=== PATIENT | female | born 1950 | race Caucasian/White ===

== ENCOUNTER → 2016-08-12 | Outpatient (CLI) | payer MEDICARE, OTHER ==
[2016-03-06 13:00] VITALS: BP 162/59
[~2016-08-12] MED LIST: ACET500T68 PO; ALIS300T PO; DIPH25CA58 PO; ESCITALOPRAM OX10 MG PO; GABA600T2 PO; HYDR-971 PO; ISOS60TA2 PO; LEVO25TA55 PO; LEVO750T5 PO; LORA1TAB PO; MIRT45TA3 PO; OXYC-327 PO; ZOLP10TA4 PO
== END | disposition home or self-care (01) ==
LOC: CLNUT 10:07
PROVIDERS: ATTEND Internal Medicine Endocrinology, Diabetes & Metabolism
DX: Z98.84 Bariatric surgery status (principal)
CPT/HCPCS: 97802

== ENCOUNTER → 2016-09-03 | Outpatient (CLI) | payer MEDICARE, OTHER ==
[2016-03-06 13:00] VITALS: BP 162/59
[~2016-09-03] MED LIST changes: +ESCI10TA PO; -ESCITALOPRAM OX10 MG PO
[2016-09-03 20:06] LABS: CREATININE, UR 22.1 mg/dL (Not Estab.)
[2016-09-03 21:10] LABS: CALCIUM UR 4.8 mg/dL (Not Estab.)
== END | disposition home or self-care (01) ==
LOC: LAB 10:46
PROVIDERS: ATTEND Internal Medicine Endocrinology, Diabetes & Metabolism
DX: E34.9 Endocrine disorder, unspecified (principal); E83.59 Other disorders of calcium metabolism; Z98.84 Bariatric surgery status
CPT/HCPCS: 36415; 82340; 82570; 84300

== ENCOUNTER → 2017-01-03 | Outpatient (CLI) | payer MEDICARE, OTHER ==
[2016-03-06 13:00] VITALS: BP 162/59
[~2017-01-03] MED LIST changes: -ESCI10TA PO; +ESCITALOPRAM OX10 MG PO
[2017-01-06 19:09] LABS: ANA INTERP Negative (.)
== END | disposition home or self-care (01) ==
LOC: LAB 11:10
PROVIDERS: ATTEND Internal Medicine Infectious Disease
DX: T84.59XD Infection and inflammatory reaction due to other internal joint prosthesis, subsequent encounter (principal); Z79.899 Other long term (current) drug therapy
CPT/HCPCS: 36415; 85651; 86140

== ENCOUNTER → 2017-01-03 | Outpatient (CLI) | payer MEDICARE, OTHER ==
[2016-03-06 13:00] VITALS: BP 162/59
[2017-01-03 12:54] LABS: CALCIUM 9.1 mg/dL (8.5-10.1); GFR 55.1; POTASSIUM 4.4 mmol/L (3.5-5.1)
== END | disposition home or self-care (01) ==
LOC: LAB 11:04
PROVIDERS: ATTEND Internal Medicine Endocrinology, Diabetes & Metabolism
DX: M81.0 Age-related osteoporosis without current pathological fracture (principal)
CPT/HCPCS: 36415; 80048

== ENCOUNTER 2017-03-25 10:02 | Inpatient (IN) | payer MEDICARE, OTHER ==
[~2017-03-25] VITALS: Ht 182.9 cm; Wt 143.3 kg
--- NOTE | 2017-03-25 10:15 | PHYS DOC ---
Past History Past Medical History: Arthritis, Hypertension Past Surgical History: Cholecystectomy, Knee Replacement Alcohol Use: None Drug Use: None Adult General Chief Complaint Chief Complaint: WEAKNESS/GENERALIZED HPI HPI Patient is a 66-year-old female presenting to the emergency department for evaluation of increased fatigue lethargy confusion and inability to ambulate. Patient has some mobility issues given her weight and medical issues but can usually get around with a walker. is providing most of the history and says that she has been falling more often and appears to be misjudging her distances between objects. She will start a sentence but not finish. He reports that she did not eat hardly anything yesterday and woke up shaky this morning. He was trying to take her to her primary care provider's office however she was unable to ambulate an ambulance had to be called. Patient denies any complaints to me and she is in fact alert and oriented. Review of Systems Review of Systems Constitutional: Denies fever or chills [] Eyes: Denies change in visual acuity, redness, or eye pain [] HENT: Denies nasal congestion or sore throat [] Respiratory: Denies cough or shortness of breath [] Cardiovascular: No additional information not addressed in HPI [] GI: Denies abdominal pain, nausea, vomiting, bloody stools or diarrhea [] : Denies dysuria or hematuria [] Musculoskeletal: Denies back pain or joint pain [] Integument: Denies rash or skin lesions [] Neurologic: Denies headache, focal weakness or sensory changes [] All other systems were reviewed and found to be within normal limits, except as documented in this note. Allergies Allergies Allergies Coded Allergies Type Severity Reaction Last Updated Verified No Known Drug Allergies 01/19/14 No Physical Exam Physical Exam Constitutional: Well developed, well nourished, no acute distress, non-toxic appearance. [] HENT: Normocephalic, atraumatic, bilateral external ears normal, oropharynx dry , no oral exudates, nose normal. [] Eyes: PERRLA, EOMI, conjunctiva normal, no discharge. [] Neck: Normal range of motion, no tenderness, supple, no stridor. [] Cardiovascular:Heart rate regular rhythm, no murmur [] Lungs & Thorax: Bilateral breath sounds clear to auscultation [] Abdomen: Bowel sounds normal, soft, no tenderness, no masses, no pulsatile masses. [] Skin: Warm, dry, no erythema, no rash. [] Back: No tenderness, no CVA tenderness. [] Extremities: No tenderness, no cyanosis, no clubbing, ROM intact, no edema. 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 No obvious cranial nerve deficits or cerebellar deficits. EKG EKG Sinus rhythm at 70 beats per minutes with leftward axis no obvious ST elevation or depression and normal T waves. Radiology/Procedures Radiology/Procedures INDICATION: FEVER, WEAKNESS COMPARISON: 04/28/2015 FINDINGS: Single view of chest obtained. Cardiac silhouette is mildly prominent but could be from portable technique. The left lung base is obscured from the field of view. No definite focal airspace consolidation in visualized portions of the lungs. Degenerative changes of the left shoulder. Air under left hemidiaphragm. IMPRESSION: Left lung base is obscured by the overlying cardiac silhouette but no definite focal airspace consolidation elsewhere in the lungs. Air underneath left hemidiaphragm with the most likely cause being air within the stomach bubble unless there is concern for abdominal pathology then dedicated imaging of the abdomen could be obtained DICTATED AND SIGNED BY: SAIMA BARROW MD DATE: 03/25/[address] of the head without contrast, 03/25/2017: History: dizziness, fall Comparison is made to a study from 04/28/2015. The ventricles are within normal limits in size. There is no shift of the midline structures. There is no evidence of acute intracranial hemorrhage or mass effect. IMPRESSION: No acute intracranial abnormality is detected. CT of the cervical spine without contrast, 03/25/2017: Noncontrast scans were obtained with multiplanar reconstructions produced. There is moderate disc space narrowing and marginal spurring at multiple levels in the mid and lower cervical spine. There is fusion of the facet joints bilaterally at C2-3 and C3-4. There is a slight chronic appearing spondylolisthesis at C3-4. The combination of findings is causing moderate central spinal stenosis at C5-6 and to a lesser degree at several other levels. There is severe bilateral foraminal bony encroachment at C5-6. No acute fracture or dislocation is identified. There is mild calcific plaquing at the carotid bifurcations. IMPRESSION: 1. Moderate multilevel degenerative change as described above. 2. No acute bony abnormality is detected. PQRS Compliance Statement: One or more of the following individualized dose reduction techniques were utilized for this examination: 1. Automated exposure control 2. Adjustment of the mA and/or kV according to patient size 3. Use of iterative reconstruction technique DICTATED AND SIGNED BY: CLAUDIA OLMSTEAD MD DATE: 03/25/17 1129 Course & Med Decision Making Course & Med Decision Making Patient with generalized lethargy from unknown cause however overdose on opioids is considered to be most likely. We'll need to rule out other acute pathology such as sepsis cardiac ischemia CVA. Patient is in renal failure likely from not taking in enough fluids and her medications are likely building up in her system. I spoke to Dr. Tiwari and he agreed to accept patient for further evaluation and treatment. Dragon Disclaimer Dragon Disclaimer This electronic medical record was generated, in whole or in part, using a voice recognition dictation system. Departure Departure: Impression: Primary Impression: Metabolic encephalopathy Additional Impressions: Renal failure Anemia Elevated brain natriuretic peptide (BNP) level Disposition: ADMITTED INPATIENT Admitting Physician: Keli Cueva Condition: GUARDED Referrals: KELI CUEVA MD (PCP) Problem Qualifiers RENE CHRISTIANSEN DO Mar 25, 2017 10:15
[2017-03-25] MEDS ORDERED: IV NORMAL SALINE 1,000ML 1,000 ML IV ONE ×2 (10:45→13:00)
[2017-03-25 10:56] LABS: BASO % 1 % (0-3); EOS # 0.1 x10^3/uL (0.0-0.7); EOS % 2 % (0-3); HEMATOCRIT 27.3 % (36.0-47.0); LYMPH # 0.4 x10^3/uL (1.0-4.8); LYMPH % 9 % (24-48); MEAN CORPUSCULAR HEMOGLOBIN 31 pg (25-35); MEAN CORPUSCULAR HGB CONC 33 g/dL (31-37); MEAN CORPUSCULAR VOLUME 95 fL (79-100); MONO # 0.3 x10^3/uL (0.0-1.1); MONO % 8 % (0-9); NEUT # 3.2 x10^3uL (1.8-7.7); NEUT % 80 % (31-73); PLATELET COUNT 131 x10^3/uL (140-400); RED BLOOD COUNT 2.88 x10^6/uL (3.50-5.40); RED CELL DISTRIBUTION WIDTH 13.8 % (11.5-14.5)
[2017-03-25 11:15] LABS: INFLUENZA A PATIENT NEGATIVE (NEGATIVE); INFLUENZA B PATIENT NEGATIVE (NEGATIVE)
[2017-03-25 11:20] LABS: ACETAMIN 6.7 mcg/mL (10-30); SALIC 2.8 mg/dL (2.8-20.0)
[2017-03-25 11:22] LABS: ALBUMIN 2.9 g/dL (3.4-5.0); ALBUMIN/GLOBULIN RATIO 0.8 (1.0-1.7); CALCIUM 7.7 mg/dL (8.5-10.1); CREATININE 4.5 mg/dL (0.6-1.0); ETHANOL < 10 mg/dL (0-10); GFR 9.7; MAGNESIUM 1.9 mg/dL (1.8-2.4); POTASSIUM 4.8 mmol/L (3.5-5.1); TOTAL BILIRUBIN 0.2 mg/dL (0.2-1.0); TOTAL PROTEIN 6.5 g/dL (6.4-8.2)
--- NOTE | 2017-03-25 11:30 | RAD ---
INDICATION: FEVER, WEAKNESS COMPARISON: 04/28/2015 FINDINGS: Single view of chest obtained. Cardiac silhouette is mildly prominent but could be from portable technique. The left lung base is obscured from the field of view. No definite focal airspace consolidation in visualized portions of the lungs. Degenerative changes of the left shoulder. Air under left hemidiaphragm. IMPRESSION: Left lung base is obscured by the overlying cardiac silhouette but no definite focal airspace consolidation elsewhere in the lungs. Air underneath left hemidiaphragm with the most likely cause being air within the stomach bubble unless there is concern for abdominal pathology then dedicated imaging of the abdomen could be obtained
--- NOTE | 2017-03-25 11:38 | RAD ---
CT of the head without contrast, 03/25/2017: History: dizziness, fall Comparison is made to a study from 04/28/2015. The ventricles are within normal limits in size. There is no shift of the midline structures. There is no evidence of acute intracranial hemorrhage or mass effect. IMPRESSION: No acute intracranial abnormality is detected. CT of the cervical spine without contrast, 03/25/2017: Noncontrast scans were obtained with multiplanar reconstructions produced. There is moderate disc space narrowing and marginal spurring at multiple levels in the mid and lower cervical spine. There is fusion of the facet joints bilaterally at C2-3 and C3-4. There is a slight chronic appearing spondylolisthesis at C3-4. The combination of findings is causing moderate central spinal stenosis at C5-6 and to a lesser degree at several other levels. There is severe bilateral foraminal bony encroachment at C5-6. No acute fracture or dislocation is identified. There is mild calcific plaquing at the carotid bifurcations. IMPRESSION: 1. Moderate multilevel degenerative change as described above. 2. No acute bony abnormality is detected. PQRS Compliance Statement: One or more of the following individualized dose reduction techniques were utilized for this examination: 1. Automated exposure control 2. Adjustment of the mA and/or kV according to patient size 3. Use of iterative reconstruction technique
[2017-03-25 11:48] LABS: BARBITURATES NEG (NEG); BENZODIAZEPINES NEG (NEG); CANNABINOIDS NEG (NEG); COCAINE NEG (NEG); METHADONE NEG (NEG); OPIATES POS (NEG); PHENCYCLIDINE NEG (NEG)
[2017-03-25 11:49] LABS: AMPHETAMINE/METHAMPHETAMINE NEG (NEG)
[2017-03-25 11:58] LABS: AMORPHOUS SEDIMENT,UR PRESENT /HPF; BACTERIA,URINE 0 /HPF (0-FEW); BILIRUBIN,URINE NEG (NEG); CLARITY,URINE HAZY; COLOR,URINE YELLOW; GLUCOSE,URINE NEG (NEG); NITRITE,URINE NEG (NEG); RBC,URINE 0 /HPF (0-2); SQUAMOUS EPITHELIAL CELL,UR OCC /LPF; UROBILINOGEN,URINE 0.2 mg/dL (0.2 mg/dL); WBC,URINE 0 /HPF (0-4)
[2017-03-25] MEDS ORDERED: ACETAMINOPHEN 325 MG TABLET PO PRN (12:00)
[2017-03-25] MEDS ORDERED: ONDANSETRON PF 4 MG/2 ML VIAL. IV PRN (12:00)
[2017-03-25 13:53] VITALS: BP 144/95
--- NOTE | 2017-03-25 16:35 | EKG ---
[address] [address] Test Date: 2017-03-25 Test Time: 10:51:19 Pat Name: KARL MEADOWS Department: Room: 125 A Gender: F Beaming Inspector: OLIVIA : [id number] Requested By: RENE CHRISTIANSEN Order Number: [id number] Reading MD: Cornelio Couch MD Measurements Intervals [place] Rate: 70 P: 38 MS: 164 QRS: -10 QRSD: 96 T: 18 QT: 384 QTc: 417 Interpretive Statements SINUS RHYTHM Electronically Signed On 03-28-2017 12:40:16 [employer] by Cornelio Couch MD
[2017-03-25 19:40] VITALS: BP 112/64
[2017-03-25] MEDS ORDERED: ALIS1TAB4 PO (20:51)
[2017-03-25] MEDS ORDERED: CLON0.5T3 PO (20:51)
[2017-03-25] MEDS ORDERED: POTA20TA4 PO (20:51)
[2017-03-25] MEDS ORDERED: DIPH25CA58 PO (20:51)
[2017-03-25] MEDS ORDERED: OXYC20TA34 PO (20:51)
[2017-03-25] MEDS ORDERED: NEBI10TA3 PO (20:51)
[2017-03-25] MEDS ORDERED: ERGO500027 PO (20:51)
[2017-03-25] MEDS ORDERED: DULO60CA6 PO (20:51)
[2017-03-25] MEDS ORDERED: ISOS60TA2 PO (20:51)
[2017-03-25] MEDS ORDERED: LEVO150T PO (20:51)
[2017-03-25] MEDS ORDERED: FERR-26 PO (20:51)
[2017-03-25] MEDS ORDERED: ASPI81TA50 PO (20:51)
[2017-03-25] MEDS ORDERED: FURO-68 PO (20:51)
[2017-03-25] MEDS ORDERED: MIRA50TA PO (20:51)
[2017-03-25] MEDS ORDERED: SOLI5TAB2 PO (20:51)
[2017-03-25] MEDS ORDERED: MELO15TA23 PO (20:51)
[2017-03-25] MEDS ORDERED: ESTR42.53 TOP (20:57)
[2017-03-25] MEDS ORDERED: ESTRADIOL 0.01% VAGINAL CREAM 42.5GM TUBE. VG PRN (21:15)
[2017-03-25] MEDS ORDERED: clonazePAM 0.5 MG TABLET PO PRN (21:15)
[2017-03-25] MEDS ORDERED: diphenhydrAMINE HCL 25 MG CAPSULE PO PRN (21:15)
[2017-03-25] MEDS ORDERED: MIRTAZAPINE 15 MG TABLET PO SCH (21:30)
[2017-03-25] MEDS ORDERED: ZOLPIDEM 5 MG TABLET. PO PRN (21:30)
[2017-03-25] MEDS: HEPARIN PF for SUB-Q USE 5,000 UNIT/0.5 ML VIAL. SQ SCH (21:51)
[2017-03-25] MEDS: GABAPENTIN 300 MG CAPSULE. PO SCH (21:51)
[2017-03-25] MEDS: oxyCODONE ER 20 MG TAB.ER.12H PO SCH (21:52)
[2017-03-25] MEDS ORDERED: IOHEXOL 240 MG/ML 50ML VIAL. PO ONE (22:45)
--- NOTE | 2017-03-25 22:52 | RAD ---
CT scan of the abdomen and pelvis with oral contrast only 03/25/2017 CLINICAL HISTORY: Abdominal pain and distention. Possible free air seen on chest radiograph earlier today. TECHNIQUE: After the oral administration of contrast only, contiguous, 3 mm axial sections were obtained through the abdomen and pelvis. One or more of the following individualized dose reduction techniques were utilized for this study: 1. Automated exposure control. 2. Adjustment of the mA and/or kV according to patient size. 3. Use of iterative reconstruction technique. FINDINGS: Images through the lung bases demonstrate minimal dependent subsegmental atelectasis bilaterally. Images through the lung bases demonstrate mild cardiomegaly. Dependent subsegmental atelectasis is seen involving both lower lobes. The liver, spleen, pancreas, adrenal glands and kidneys are within normal limits. Atherosclerotic calcification of the abdominal aorta is seen. The abdominal aorta tapers normally. Surgical clips are seen within the gallbladder fossa consistent with a cholecystectomy. No free fluid or free air is seen within the abdomen. A moderate to large amount of stool is seen throughout the colon. Images through the pelvis demonstrate the urinary bladder to be contracted. A Ball catheter is noted in place. The patient is post right ELIDA. No free fluid is seen. Degenerative changes are seen involving lower thoracic and throughout the lumbar spine and the left hip. IMPRESSION: Moderate to large amount of stool is seen throughout the colon. No acute abnormality is seen. Electronically signed by: Zac Barnard MD (03/25/2017 10:49 PM) [facility]
[2017-03-25] MEDS ORDERED: CONTRAST GIVEN MC PRN (23:00)
[2017-03-25 23:46] VITALS: BP 114/82
[2017-03-26] VITALS (13 sets, daily range): BP systolic 85–146; BP diastolic 37–71
[2017-03-26] MEDS: HEPARIN PF for SUB-Q USE 5,000 UNIT/0.5 ML VIAL. SQ SCH ×3 (05:47→21:29)
[2017-03-26] MEDS: oxyCODONE ER 20 MG TAB.ER.12H PO SCH ×2 (05:47→07:58)
[2017-03-26] MEDS: GABAPENTIN 300 MG CAPSULE. PO SCH (07:58)
[2017-03-26] MEDS: LEVOTHYROXINE 150 MCG TABLET PO SCH (07:59)
[2017-03-26] MEDS: FERROUS SULFATE 325 MG TABLET. PO SCH ×2 (08:00→17:17)
[2017-03-26] MEDS: ASPIRIN ENTERIC COATED 81 MG TABLET.DR. PO SCH (08:00)
[2017-03-26] MEDS ORDERED: MELOXICAM 15 MG TABLET. PO SCH (09:00)
[2017-03-26] MEDS ORDERED: OXYBUTYNIN CHLORIDE 5 MG TABLET PO SCH (09:00)
[2017-03-26] MEDS ORDERED: ISOSORBIDE MONONITRATE ER 30 MG TAB.ER.24H PO SCH (09:00)
[2017-03-26] MEDS ORDERED: NON FORMULARY ITEM (Mirabegron (Myrbetriq) 50 MG) PO SCH (09:00)
[2017-03-26] MEDS ORDERED: POTASSIUM CHLORIDE 20 MEQ TABLET.ER. PO SCH (09:00)
[2017-03-26] MEDS ORDERED: hydroCHLOROthiazide 25 MG TABLET PO SCH (09:00)
[2017-03-26] MEDS ORDERED: ALISKIREN HEMIFUMARATE 150 MG TABLET. PO SCH (09:00)
[2017-03-26] MEDS ORDERED: FUROSEMIDE 40 MG TABLET PO SCH (09:00)
[2017-03-26] MEDS ORDERED: levoFLOXacin 750 MG TABLET PO SCH (09:00)
[2017-03-26] MEDS ORDERED: MIRABEGRON 25 MG TAB.ER.24H PO SCH (09:00)
[2017-03-26] MEDS ORDERED: DULoxetine HCL 60 MG CAPSULE.DR PO SCH (09:00)
[2017-03-26] MEDS ORDERED: METOPROLOL TART IMMED RELEASE 50 MG TABLET PO SCH (09:00)
[2017-03-26 09:06] LABS: CALCIUM 7.8 mg/dL (8.5-10.1); CREATININE 3.4 mg/dL (0.6-1.0); GFR 13.4; POTASSIUM 4.7 mmol/L (3.5-5.1)
[2017-03-26 09:08] LABS: BASO % 1 % (0-3); EOS # 0.1 x10^3/uL (0.0-0.7); EOS % 2 % (0-3); HEMATOCRIT 28.3 % (36.0-47.0); HEMOGLOBIN 9.3 g/dL (12.0-15.5); LYMPH # 0.4 x10^3/uL (1.0-4.8); LYMPH % 14 % (24-48); MEAN CORPUSCULAR HEMOGLOBIN 31 pg (25-35); MEAN CORPUSCULAR HGB CONC 33 g/dL (31-37); MEAN CORPUSCULAR VOLUME 95 fL (79-100); MONO # 0.3 x10^3/uL (0.0-1.1); MONO % 9 % (0-9); NEUT # 2.2 x10^3uL (1.8-7.7); NEUT % 74 % (31-73); PLATELET COUNT 127 x10^3/uL (140-400); RED BLOOD COUNT 2.98 x10^6/uL (3.50-5.40); RED CELL DISTRIBUTION WIDTH 13.3 % (11.5-14.5); WHITE BLOOD COUNT 3.1 x10^3/uL (4.0-11.0)
[2017-03-26] MEDS ORDERED: NALOXONE 0.4 MG/ML VIAL. IV ONE (11:00)
--- NOTE | 2017-03-26 11:39 | HP ---
ADMIT DATE: 03/25/2017 HISTORY OF PRESENT ILLNESS: The patient is a 66-year-old female with multiple medical problems, who came in with fatigue, lethargy, confusion and inability to ambulate. The patient's notes for last day or two prior to admission, the patient has been having problems with not eating, drinking, and becoming more and more confused. As a result of this, the patient was brought in through the Emergency Room. Her creatinine was found to be in the 4.5 range, which is very high for her and her BUN was 85. As a result of all this, the patient was admitted to the hospital for further evaluation and treatment. PAST MEDICAL HISTORY: Includes severe osteoarthritis, morbid obesity, thyroid cancer, hypertension, diabetes, coronary artery disease, possible infection of her right and left knees as a result of previous joint infections, sees Dr. Myrna ZENG for this. ALLERGIES: No known allergies. PAST SURGICAL HISTORY: Right knee replacement 03/2013, right knee replacement with infection 04/12/2013, right knee joint removal infection 05/12/2013, right knee muscle flap repair fell down kneecap went through sutures from previous surgery, thyroid removed, gastric bypass, right knee incision and drainage, right knee replacement, hysterectomy. MEDICATIONS: Include that of Remeron 45 mg at bedtime, Bystolic 10 mg daily, vitamin D 50,000 once a day, Synthroid 150 mcg, Levaquin 750 mg daily, calcium citrate, Flector patch, VESIcare 5 mg daily, OxyContin 20 mg every 8 hours, Ambien 10, gabapentin 600 three times a day. FAMILY HISTORY: Basically unremarkable. SOCIAL HISTORY: The patient denies smoking, alcohol or drug use. REVIEW OF SYSTEMS: Markedly confused, disoriented, is not really able to answer questions as we have asked her and she is just not answering questions. This is pretty much a comatose patient. PHYSICAL EXAMINATION: VITAL SIGNS: Blood pressure 110/40, respiratory rate 16, pulse 70, temperature of approximately 98.4. The patient is on 2 liters nasal cannula. HEENT: The patient's head was atraumatic, normocephalic. Eyes: PERRLA, although somewhat slow to react. Mouth and throat: Dry mucous membranes. NECK: Supple, without JVD, carotid bruit or thyromegaly. LUNGS: Diminished. Poor movement of air. CARDIOVASCULAR: Regular sinus rhythm. ABDOMEN: Soft, protuberant, nontender. No rebound or guarding. Positive bowel sounds, no hepatosplenomegaly noted. EXTREMITIES: No clubbing, cyanosis. Trace edema noted. She has marked lymphedema to her legs. Marked degenerative changes noted to her joints. She also has marked hypertrophy consistent with arthritis to the knees and previous knee surgeries as indicated. IMPRESSION: Acute encephalopathy, dehydration, chronic on top of acute kidney disease stage 2, change in mental status, constipation, dehydration, morbid obesity. PLAN: The patient will be placed in the ICU because of her low blood pressure, low oxygen saturation. Monitor carefully IV fluids. Take her off most of her meds since she cannot swallow. Continue to monitor blood pressures and make further adjustment on her as indicated. KELI CUEVA MD DR: BARRINGTON/hank JOB#: [id number] / [id number]
[2017-03-26] MEDS: IV NORMAL SALINE 1,000ML 1,000 ML IV SCH ×3 (11:47→22:00)
--- NOTE | 2017-03-26 12:03 | RAD ---
CT head without contrast 03/26/2017 Indication: Loss of consciousness Comparison: CT head 03/25/2017 Technique: Multiple axial noncontrast CT images of the head were obtained from the skull base through the vertex. Findings: The ventricles, sulci and basal cisterns are within normal limits. Low-attenuation in the periventricular white matter is compatible with chronic small vessel ischemic changes. There is subtle low attenuation involving the left temporal lobe which may be artifactual from adjacent streak artifact. There is no acute intracranial hemorrhage. There is no mass, mass effect or midline shift. Posterior fossa is within normal limits. Sellar and suprasellar cistern appear normal. Orbits are normal in appearance. Paranasal sinuses are well aerated. Mastoid air cells are well aerated. Scalp and calvaria are normal. Impression: There is no acute intracranial hemorrhage. Subtle low attenuation is noted in the left temporal lobe, which may be artifactual from adjacent bone and streak artifact. If there is persistent neurologic deficit, further evaluation with MRI may be of benefit. PQRS Compliance Statement: One or more of the following individualized dose reduction techniques were utilized for this examination: 1. Automated exposure control 2. Adjustment of the mA and/or kV according to patient size 3. Use of iterative reconstruction technique
--- NOTE | 2017-03-26 13:04 | RAD ---
Portable chest, 03/26/2017: History: Shortness of breath Comparison is made to a study from 03/25/2017. The heart is at the upper limits of normal in size. There is mild tortuosity of the thoracic aorta. The pulmonary vascularity is normal. No pulmonary infiltrates are seen. There is no evidence of pleural fluid. IMPRESSION: No acute cardiopulmonary abnormality is detected.
--- NOTE | 2017-03-26 18:22 | CONS ---
DATE OF CONSULTATION: 03/26/2017 REASON FOR CONSULTATION: Hypotension. HISTORY OF PRESENT ILLNESS: The patient is a 66-year-old woman who has past medical history as noted below, presented to the hospital in the setting of mental status changes. She also had acute renal failure and the etiology is currently unclear with not a clear differential diagnosis. The patient denies any preceding chest pain, orthopnea, PND, or significant lower extremity edema. 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 She denies any recent urinary tract issues or changes to her medications or [id number] drugs. Initial evaluation revealed the creatinine of 4.5 and she was given 2 liters of fluid for hypotension and this has improved her creatinine. Initial cardiac enzymes were negative and were minimally elevated, but nonetheless at the upper limits of normal. PAST MEDICAL HISTORY: 1. Morbid obesity. 2. Significant osteoarthritis. 3. Diabetes. 4. Hypertension. 5. Presumed coronary artery disease, based on chart, but the patient denies any prior history. ALLERGIES: No known drug allergies. PAST SURGICAL HISTORY: Surgical history is notable for significant knee replacements, removal of thyroid, gastric bypass, and hysterectomy. CURRENT CARDIOVASCULAR MEDICATIONS: 1. Aspirin 81 mg daily. SOCIAL HISTORY: The patient denies any alcohol, tobacco, or illicit drug use. REVIEW OF SYSTEMS: Negative for 10 out of 14 systems reviewed, unless otherwise mentioned above in the HPI. PHYSICAL EXAMINATION: VITAL SIGNS: Afebrile, 69, 18, 121/56, 95% on room air. She previously was noted to have low blood pressure of approximately 80/40 this morning around 10:00 a.m. HEAD AND NECK: Exam is unremarkable except for thick neck. CARDIAC: Regular rate and rhythm without any murmurs, rubs, or gallops. LUNGS: Fairly clear to auscultation bilaterally anteriorly. ABDOMEN: Obese, nontender with distal bowel sounds. EXTREMITIES: Bilateral chronic venous stasis changes in lower extremities, 2+ radial pulses, and diminished pedal pulses. NEUROLOGIC: No focal deficits are noted. DIAGNOSTIC STUDIES: CT of the head is unremarkable without any evidence of midline shift or intracranial hemorrhage. Chest x-ray demonstrates no significant abnormalities. EKG demonstrates sinus rhythm without any acute ST or T-wave changes. Echocardiogram is currently pending. LABORATORY DATA: Laboratory study is notable for creatinine of 3.4, down from 4.5. Her TSH and cardiac enzymes are within normal limits. BNP is minimally elevated at 1661. IMPRESSION: 1. Hypotension. 2. Acute renal failure of unclear etiology: The patient does not exhibit any clear signs or symptoms of sepsis. She has no recent urinary tract infection or obstructive pathology, but she may benefit from further evaluation and rest of her acute renal failure. From a purely cardiovascular perspective, her hypotension is most likely related to her multiple analgesic drugs and although she reports that she has been taking her medications accurately, it is unclear if she is truly conforming to her medication dosages. 3. No obvious cardiac ischemia by EKG or biomarkers. RECOMMENDATIONS: 1. Supportive care with food or resuscitation as necessary. 2. We will obtain an echocardiogram to rule out any significant structural heart disease. Overall, low suspicion for any cardiac related hypotension. Thank you for this consultation. YVETTE ARMENTA MD DR: FRANKY/hank JOB#: [id number] / [id number]
[2017-03-27] VITALS (18 sets, daily range): BP systolic 105–154; BP diastolic 47–77
[2017-03-27] MEDS: IV NORMAL SALINE 1,000ML 1,000 ML IV SCH ×2 (03:55→16:45)
[2017-03-27] MEDS: HEPARIN PF for SUB-Q USE 5,000 UNIT/0.5 ML VIAL. SQ SCH ×3 (07:09→21:55)
[2017-03-27] MEDS: LEVOTHYROXINE 150 MCG TABLET PO SCH (07:33)
[2017-03-27] MEDS: FERROUS SULFATE 325 MG TABLET. PO SCH ×2 (08:18→17:23)
[2017-03-27] MEDS: ASPIRIN ENTERIC COATED 81 MG TABLET.DR. PO SCH (08:18)
--- NOTE | 2017-03-27 08:43 | CARD ---
MR#: [id number] Date of Study: 03/26/2017 Ordering Physician: KELI CUEVA, Referring Physician: KELI CUEVA, Tech: Arelis Thacker RDCS APPROVED REPORT EXAM: Two-dimensional and M-mode echocardiogram with Doppler and color Doppler. Other Information Quality : AverageHR: 73bpm Rhythm : NSR INDICATION Hypotension 2D DIMENSIONS Left Atrium(2D)4.4 (1.6-4.0cm)IVSd1.1 (0.7-1.1cm) Aortic Root(2D)2.7 (2.0-3.7cm)LVDd5.1 (3.9-5.9cm) LVOT Diameter2.5 (1.8-2.4cm)PWd1.1 (0.7-1.1cm) LVDs3.1 (2.5-4.0cm)FS (%) 38.0 % SV82.6 mlLVEF(%)67.9 (>50%) Aortic Valve AoV Peak Edward.176.0cm/sAoV VTI43.5cm AO Peak GR.12.4mmHgLVOT Peak Edward.134.9cm/s LVOT VTI 30.86cmAO Mean GR.7mmHg ELBA (VMAX)3.63ai7SFH (VTI)3.47cm2 Mitral Valve MV E Udxxuito20.3cm/sMV DECEL [id number] MV A Yxqrpofv98.6cm/sE/A Ratio0.9 Pulmonary Valve PV Peak Xzcczjqe496.9cm/sPV Peak Grad.7mmHg Tricuspid Valve TR P. Wxzzqfqj003lk/sTR Peak Gr.51mmHg LEFT VENTRICLE The left ventricle is normal size. There is normal left ventricular wall thickness. The left ventricu lar systolic function is normal. The ejection fraction is estimated at 60-65%. There is normal LV seg mental wall motion. No left ventricle thrombus noted on this study. There is no ventricular septal de fect visualized. There is no left ventricular aneurysm. RIGHT VENTRICLE The right ventricle is normal size. The right ventricular systolic function is normal. ATRIA The left atrium is mildly dilated. The right atrium size is normal. AORTIC VALVE The aortic valve is normal in structure and function. Doppler and Color Flow revealed trace to no aor tic regurgitation. There is no significant aortic valvular stenosis. There is no aortic valvular vege tation. MITRAL VALVE The mitral valve is normal in structure and function. There is no evidence of mitral valve prolapse. There is no mitral valve stenosis. Doppler and Color-flow revealed mild mitral regurgitation. TRICUSPID VALVE The tricuspid valve is normal in structure and function. Doppler and Color Flow revealed moderate tri cuspid regurgitation. There is no tricuspid valve prolapse or vegetation. There is no tricuspid valve stenosis. PULMONIC VALVE The pulmonary valve is normal in structure and function. Doppler and Color Flow revealed no pulmonic valvular regurgitation. There is no pulmonic valvular stenosis. GREAT VESSELS The aortic root is normal in size. The ascending aorta is normal in size. The IVC is normal in size a nd collapses >50% with inspiration. PERICARDIAL EFFUSION There is no pleural effusion. There is no evidence of significant pericardial effusion. Critical Notification Critical Value: No <Conclusion> The left ventricular systolic function is normal. The ejection fraction is estimated at 60-65%. There is normal LV segmental wall motion. Mild mitral regurgitation. Moderate tricuspid regurgitation. There is no evidence of significant pericardial effusion. Signed by : Edilberto Butler, Electronically Approved : 03/27/2017 08:42:53
[2017-03-27] MEDS: levoFLOXacin 250 MG TABLET PO SCH (10:06)
[2017-03-27 10:23] LABS: BASO % 1 % (0-3); EOS # 0.1 x10^3/uL (0.0-0.7); EOS % 3 % (0-3); HEMATOCRIT 29.5 % (36.0-47.0); HEMOGLOBIN 9.9 g/dL (12.0-15.5); LYMPH # 0.5 x10^3/uL (1.0-4.8); LYMPH % 14 % (24-48); MEAN CORPUSCULAR HEMOGLOBIN 32 pg (25-35); MEAN CORPUSCULAR HGB CONC 34 g/dL (31-37); MEAN CORPUSCULAR VOLUME 94 fL (79-100); MONO # 0.3 x10^3/uL (0.0-1.1); MONO % 8 % (0-9); NEUT # 2.5 x10^3uL (1.8-7.7); NEUT % 74 % (31-73); PLATELET COUNT 138 x10^3/uL (140-400); RED BLOOD COUNT 3.14 x10^6/uL (3.50-5.40); RED CELL DISTRIBUTION WIDTH 13.6 % (11.5-14.5); WHITE BLOOD COUNT 3.4 x10^3/uL (4.0-11.0)
[2017-03-27 10:46] LABS: CALCIUM 7.9 mg/dL (8.5-10.1); CREATININE 2.6 mg/dL (0.6-1.0); GFR 18.3; POTASSIUM 4.3 mmol/L (3.5-5.1)
[2017-03-27] MEDS: MORPHINE ER 30 MG TABLET.ER PO SCH ×2 (12:30→21:53)
--- NOTE | 2017-03-27 12:47 | PDOC ---
PROGRESS NOTES Diagnosis Problem Problems Medical Problems: (1) Anemia Status: Acute (2) Elevated brain natriuretic peptide (BNP) level Status: Acute (3) Metabolic encephalopathy Status: Acute (4) Renal failure Status: Acute Assessment Problems Medical Problems: (1) Anemia Status: Acute (2) Elevated brain natriuretic peptide (BNP) level Status: Acute (3) Metabolic encephalopathy Status: Acute (4) Renal failure Status: Acute 1. Hypotension - likely secondary to dehydration, resolved. Normal LV function and wall motion by echo. 2. ARF - improving. per PCP continue supportive care. Call if any questions or concerns. Problems: Subjective no chest pain, breathing easy, no palpitations. Objective Vital Signs Date Time Temp Pulse Resp B/P (MAP) Pulse Ox O2 Delivery O2 Flow Rate FiO2 03/27/17 12:32 98.4 03/27/17 12:30 18 98 Room Air 03/27/17 11:00 72 154/77 (102) 03/26/17 16:19 2.0 Intake and Output 03/27/17 06:59 Intake Total 2725 ml Output Total 1500 ml Balance 1225 ml Intake Oral 700 ml IV Total 2025 ml Output Urine Total 1500 ml # Bowel Movements 1 Abdomen: Normal bowel sounds, Soft Heart: Regular rate, Normal S1, Normal S2 Extremities: Other (+ peripheral edema) General: Alert, Cooperative, No acute distress Lungs: Other (minimallly decreased bases without crackles, wheezing or rhonchi. ) Neuro: Normal speech Psych/Mental Status: Mental status NL, Mood NL Review of Relevant I have reviewed the following items chanel (where applicable) has been applied. Labs Laboratory Tests Test 03/26/17 08:50 03/26/17 13:04 03/26/17 14:30 03/27/17 10:09 White Blood Count 3.1 x10^3/uL (4.0-11.0) 3.4 x10^3/uL (4.0-11.0) Red Blood Count 2.98 x10^6/uL (3.50-5.40) 3.14 x10^6/uL (3.50-5.40) Hemoglobin 9.3 g/dL (12.0-15.5) 9.9 g/dL (12.0-15.5) Hematocrit 28.3 % (36.0-47.0) 29.5 % (36.0-47.0) Mean Corpuscular Volume 95 fL (79-100) 94 fL (79-100) Mean Corpuscular Hemoglobin 31 pg (25-35) 32 pg (25-35) Mean Corpuscular Hemoglobin Concent 33 g/dL (31-37) 34 g/dL (31-37) Red Cell Distribution Width 13.3 % (11.5-14.5) 13.6 % (11.5-14.5) Platelet Count 127 x10^3/uL (140-400) 138 x10^3/uL (140-400) Neutrophils (%) (Auto) 74 % (31-73) 74 % (31-73) Lymphocytes (%) (Auto) 14 % (24-48) 14 % (24-48) Monocytes (%) (Auto) 9 % (0-9) 8 % (0-9) Eosinophils (%) (Auto) 2 % (0-3) 3 % (0-3) Basophils (%) (Auto) 1 % (0-3) 1 % (0-3) Neutrophils # (Auto) 2.2 x10^3uL (1.8-7.7) 2.5 x10^3uL (1.8-7.7) Lymphocytes # (Auto) 0.4 x10^3/uL (1.0-4.8) 0.5 x10^3/uL (1.0-4.8) Monocytes # (Auto) 0.3 x10^3/uL (0.0-1.1) 0.3 x10^3/uL (0.0-1.1) Eosinophils # (Auto) 0.1 x10^3/uL (0.0-0.7) 0.1 x10^3/uL (0.0-0.7) Basophils # (Auto) 0.0 x10^3/uL (0.0-0.2) 0.0 x10^3/uL (0.0-0.2) Sodium Level 138 mmol/L (136-145) 141 mmol/L (136-145) Potassium Level 4.7 mmol/L (3.5-5.1) 4.3 mmol/L (3.5-5.1) Chloride Level 106 mmol/L (98-107) 108 mmol/L (98-107) Carbon Dioxide Level 20 mmol/L (21-32) 21 mmol/L (21-32) Anion Gap 12 (6-14) 12 (6-14) Blood Urea Nitrogen 71 mg/dL (7-20) 61 mg/dL (7-20) Creatinine 3.4 mg/dL (0.6-1.0) 2.6 mg/dL (0.6-1.0) Estimated GFR (Cockcroft-Gault) 13.4 18.3 Glucose Level 110 mg/dL (70-99) 115 mg/dL (70-99) Calcium Level 7.8 mg/dL (8.5-10.1) 7.9 mg/dL (8.5-10.1) D-Dimer (Jewell) 4.01 mg/L (0.00-0.50) Creatine Kinase 77 U/L (26-192) Troponin I Quantitative 0.055 ng/mL (0-0.055) Nasal Screen MRSA (PCR) Negative (Negative) Microbiology 03/25/17 Blood Culture - Preliminary, Resulted NO GROWTH AFTER 2 DAYS Medications Current Medications Sodium Chloride 1,000 ml @ 1,000 mls/hr 1X ONCE IV Last administered on at 10:48; Start 03/25/17 at 10:45; Stop 03/25/17 at 11:44; Status DC Ondansetron HCl (Zofran) 4 mg PRN Q4HRS PRN IV NAUSEA/VOMITING; Start 03/25/17 at 12:00; Stop 03/26/17 at 10:43; Status DC Acetaminophen (Tylenol) 650 mg PRN Q4HRS PRN PO FEVER; Start 03/25/17 at 12:00; Stop 03/26/17 at 10:43; Status DC Sodium Chloride 1,000 ml @ 150 mls/hr 1X ONCE IV Last administered on at 19:55; Start 03/25/17 at 13:00; Stop 03/25/17 at 19:39; Status DC Aspirin (Aspirin Enteric Coated) 81 mg DAILY PO Last administered on 03/27/17at 08:18; Start 03/26/17 at 09:00 Clonazepam (KlonoPIN) 0.5 mg PRN TID PRN PO ANXIETY; Start 03/25/17 at 21:15; Stop 03/26/17 at 11:05; Status DC Diphenhydramine HCl (Benadryl) 25 mg PRN Q6HRS PRN PO ALLERGIES; Start 03/25/17 at 21:15; Stop 03/26/17 at 11:05; Status DC Duloxetine HCl (Cymbalta) 60 mg DAILY PO Last administered on 03/26/17at 07:58; Start 03/26/17 at 09:00; Stop 03/26/17 at 11:05; Status DC Estradiol (Estrace) 1 daja PRN DAILY PRN VG itching; Start 03/25/17 at 21:15; Stop 03/26/17 at 10:43; Status DC Ferrous Sulfate (Feosol) 325 mg BIDWMEALS PO Last administered on 03/27/17at 08: 18; Start 03/26/17 at 08:00 Furosemide (Lasix) 40 mg DAILY PO Last administered on 03/26/17at 08:00; Start at 09:00; Stop 03/26/17 at 10:43; Status DC Levofloxacin (Levaquin) 750 mg DAILY PO ; Start 03/26/17 at 09:00; Stop 03/26/17 at 09:00; Status DC Levothyroxine Sodium (Synthroid) 150 mcg DAILYAC PO Last administered on at 07:33; Start 03/26/17 at 07:30 Meloxicam (Mobic) 15 mg DAILY PO Last administered on 03/26/17at 07:59; Start 03/26/17 at 09:00; Stop 03/26/17 at 10:43; Status DC Oxycodone HCl (OxyCONTIN) 20 mg Q8HRS PO Last administered on 03/25/17at 21:52; Start 03/25/17 at 22:00; Stop 03/26/17 at 10:43; Status DC Potassium Chloride (Klor-Con) 20 meq DAILY PO Last administered on 03/26/17at 07: 57; Start 03/26/17 at 09:00; Stop 03/26/17 at 10:43; Status DC Zolpidem Tartrate (Ambien) 5 mg PRN QHS PRN PO INSOMNIA, MR X1 WITHIN 2 HRS; Start 03/25/17 at 21:30; Stop 03/26/17 at 10:43; Status DC Aliskiren (Tekturna) 300 mg DAILY PO Last administered on 03/26/17at 07:58; Start 03/26/17 at 09:00; Stop 03/26/17 at 10:43; Status DC Vitamin D (Vitamin D3) 50,000 unit WEEKLY PO ; Start 03/30/17 at 09:00; Stop 03/30 at 09:00; Status DC Gabapentin (Neurontin) 600 mg TID PO Last administered on 03/26/17at 07:58; Start 03/25/17 at 21:30; Stop 03/26/17 at 11:05; Status DC Isosorbide Mononitrate (Imdur) 60 mg DAILY PO Last administered on 03/26/17at 07: 59; Start 03/26/17 at 09:00; Stop 03/26/17 at 10:43; Status DC Non-Formulary Medication 50 mg DAILY PO Last administered on 03/26/17at 08:00; Start 03/26/17 at 09:00; Stop 03/26/17 at 10:43; Status UNV Non-Formulary Medication 50 mg DAILY PO ; Start 03/26/17 at 09:00; Status UNV Mirtazapine (Remeron) 45 mg QHS PO Last administered on 03/25/17at 21:51; Start 03/25/17 at 21:30; Stop 03/26/17 at 10:43; Status DC Metoprolol Tartrate (Lopressor) 50 mg BID PO Last administered on 03/26/17at 07: 59; Start 03/26/17 at 09:00; Stop 03/26/17 at 10:43; Status DC Oxybutynin Chloride (Ditropan) 5 mg BID PO Last administered on 03/26/17at 08:00 ; Start 03/26/17 at 09:00; Stop 03/26/17 at 10:43; Status DC Heparin Sodium (Porcine) 5,000 unit Q8HRS SQ Last administered on 03/27/17at 07: 09; Start 03/25/17 at 22:00 Hydrochlorothiazide (Hydrodiuril) 25 mg DAILY PO Last administered on 03/26/17at 07:57; Start 03/26/17 at 09:00; Stop 03/26/17 at 10:43; Status DC Iohexol (Omnipaque 240 Mg/ml) 50 ml 1X ONCE PO Last administered on 03/25/17at 23:07; Start 03/25/17 at 22:45; Stop 03/25/17 at 22:47; Status DC Info (Do NOT chart on this entry -- for MONITORING) 1 each PRN DAILY PRN MC SEE COMMENTS; Start 03/25/17 at 23:00; Stop 03/27/17 at 22:59 Sodium Chloride 1,000 ml @ 200 mls/hr Q5H IV Last administered on 03/26/17at 22: 00; Start 03/26/17 at 10:45 Naloxone HCl (Narcan) 0.4 mg 1X ONCE IV Last administered on 03/26/17at 11:20; Start 03/26/17 at 11:00; Stop 03/26/17 at 11:02; Status DC Levofloxacin (Levaquin) 250 mg DAILY06 PO Last administered on 03/27/17at 10:06; Start 03/27/17 at 10:00 Morphine Sulfate (Ms Contin) 30 mg BID PO Last administered on 03/27/17at 12:30; Start 03/27/17 at 10:15 Active Scripts Active Reported Estrace (Estradiol) 42.5 Gm Cream.appl 1 Daja TOP PRN DAILY PRN LAST DOSE GIVEN: DATE: TIME: NEXT DOSE DUE: DATE: TIME: Bystolic (Nebivolol Hcl) 10 Mg Tablet 10 Mg PO DAILY Lasix (Furosemide) 40 Mg Tablet 40 Mg PO DAILY Tekturna Hct 300-25 Mg Tablet (Aliskiren/Hydrochlorothiazide) 1 Each Tablet 1 Each PO DAILY Synthroid (Levothyroxine Sodium) 150 Mcg Tablet 150 Mcg PO DAILYAC Cymbalta (Duloxetine Hcl) 60 Mg Capsule. 60 Mg PO DAILY Myrbetriq (Mirabegron) 50 Mg Tab.er.24h 50 Mg PO DAILY Myrbetriq (Mirabegron) 50 Mg Tab.er.24h 50 Mg PO DAILY Clonazepam 0.5 Mg Tablet 0.5 Mg PO TID PRN Aspir-Low (Aspirin) 81 Mg Tablet. 81 Mg PO DAILY Vitamin D2 (Ergocalciferol (Vitamin D2)) 50,000 Unit Capsule 50,000 Unit PO WEEKLY Meloxicam 15 Mg Tablet 15 Mg PO DAILY Vesicare (Solifenacin Succinate) 5 Mg Tablet 5 Mg PO DAILY Benadryl (Diphenhydramine Hcl) 25 Mg Capsule 25 Mg PO Q6HRS PRN Isosorbide Mononitrate Er (Isosorbide Mononitrate) 60 Mg Tab.er.24h 60 Mg PO DAILY Ferrous Sulfate 325 Mg Tablet 325 Mg PO BIDWMEALS Oxycontin (Oxycodone HCl) 20 Mg Tab.er.12h 20 Mg PO Q8HRS Klor-Con M20 (Potassium Chloride) 20 Meq Tab.er.prt 20 Meq PO DAILY Levofloxacin 750 Mg Tablet 750 Mg PO DAILY Gabapentin 600 Mg Tablet 600 Mg PO TID last dose this morning next dose due this afternoon Zolpidem Tartrate 10 Mg Tablet 10 Mg PO PRN QHS PRN last dose last night next dose due tonight Mirtazapine 45 Mg Tablet 1 Tab PO QHS last dose last night next dose due tonight Vitals/I & O Vital Sign - Last 24 Hours 03/26/17 03/26/17 03/26/17 03/26/17 13:14 13:25 14:00 15:00 Temp 98.2 Pulse 71 70 68 Resp 18 20 18 B/P (MAP) 129/50 (76) 115/50 (71) 117/69 (85) Pulse Ox 95 97 94 O2 Delivery Nasal Cannula Nasal Cannula O2 Flow Rate 2.0 2.0 03/26/17 03/26/17 03/26/17 03/26/17 16:19 16:24 17:52 19:18 Pulse 69 72 70 Resp 18 18 18 B/P (MAP) 121/56 (77) 141/63 (89) 121/56 (77) Pulse Ox 95 94 96 O2 Delivery Nasal Cannula Nasal Cannula Room Air Room Air O2 Flow Rate 2.0 03/26/17 03/26/17 03/26/17 03/26/17 20:00 20:17 20:18 21:40 Temp 98.0 Pulse 74 68 Resp 21 B/P (MAP) 137/58 (84) 120/48 (72) Pulse Ox 93 96 O2 Delivery Room Air Room Air Room Air 03/26/17 03/27/17 03/27/17 03/27/17 23:11 00:01 00:06 01:09 Pulse 68 67 85 Resp 20 18 18 B/P (MAP) 133/58 (83) 137/56 (83) 118/51 (73) Pulse Ox 96 97 97 O2 Delivery Room Air Room Air Room Air Room Air 03/27/17 03/27/17 03/27/17 03/27/17 02:08 03:14 04:00 04:07 Pulse 73 69 72 B/P (MAP) 113/48 (69) 105/47 (66) 123/60 (81) Pulse Ox 95 93 94 O2 Delivery Room Air Room Air Room Air Room Air 03/27/17 03/27/17 03/27/17 03/27/17 05:15 05:56 06:06 07:00 Temp 98.2 Pulse 67 70 68 B/P (MAP) 125/51 (75) 139/57 (84) 135/63 (87) Pulse Ox 96 94 97 O2 Delivery Room Air Room Air 03/27/17 03/27/17 03/27/17 03/27/17 08:00 09:00 09:15 10:00 Pulse 68 72 69 B/P (MAP) 153/57 (89) 144/63 (90) 144/66 (92) Pulse Ox 96 92 96 O2 Delivery Room Air 03/27/17 03/27/17 03/27/17 11:00 12:30 12:32 Temp 98.4 Pulse 72 Resp 18 B/P (MAP) 154/77 (102) Pulse Ox 98 98 O2 Delivery Room Air Intake and Output 03/26/17 03/26/17 03/27/17 14:59 22:59 06:59 Intake Total 1725 ml 1000 ml Output Total 800 ml 700 ml Balance 925 ml 300 ml ALEXANDRIA HOWARD APRN Mar 27, 2017 12:47
--- NOTE | 2017-03-27 13:27 | EKG ---
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
[2017-03-28 00:01] VITALS: BP 132/51
[2017-03-28] MEDS: IV NORMAL SALINE 1,000ML 1,000 ML IV SCH ×2 (00:40→07:19)
[2017-03-28 02:00] VITALS: BP 117/46
--- NOTE | 2017-03-28 02:30 | PN ---
DATE: 03/27/2017 SUBJECTIVE: The patient with acute renal failure. The is resting fairly comfortably, still receiving IV fluids as her creatinine has come down from 4.5, down to 2.6 showing the severe degree of dehydration this patient underwent. She was markedly hypotensive yesterday. She is doing much better this afternoon and making good progress overall. OBJECTIVE: VITAL SIGNS: Blood pressure 150/60, respiration 18, pulse 75, afebrile. LUNGS: Diminished throughout, but clear. CARDIOVASCULAR: Regular sinus rhythm. ABDOMEN: Protuberant. EXTREMITIES: Clubbing, cyanosis or edema. PLAN: Continue on low dose fluids. Continue to monitor accordingly. Make further evaluation on her as indicated. Otherwise, hypotension and acute renal failure. Plan as above. KELI CUEVA MD DR: BARRINGTON/hank JOB#: [id number] / [id number]
[2017-03-28 03:00] VITALS: BP 128/51
[2017-03-28 05:57] VITALS: BP 132/61
[2017-03-28] MEDS: levoFLOXacin 250 MG TABLET PO SCH (06:33)
[2017-03-28] MEDS: LEVOTHYROXINE 150 MCG TABLET PO SCH (06:34)
[2017-03-28] MEDS: HEPARIN PF for SUB-Q USE 5,000 UNIT/0.5 ML VIAL. SQ SCH (06:34)
[2017-03-28 07:39] LABS: BASO % 1 % (0-3); EOS # 0.2 x10^3/uL (0.0-0.7); EOS % 5 % (0-3); HEMATOCRIT 26.8 % (36.0-47.0); HEMOGLOBIN 8.9 g/dL (12.0-15.5); LYMPH # 0.8 x10^3/uL (1.0-4.8); LYMPH % 25 % (24-48); MEAN CORPUSCULAR HEMOGLOBIN 31 pg (25-35); MEAN CORPUSCULAR HGB CONC 33 g/dL (31-37); MEAN CORPUSCULAR VOLUME 95 fL (79-100); MONO # 0.4 x10^3/uL (0.0-1.1); MONO % 12 % (0-9); NEUT # 1.9 x10^3uL (1.8-7.7); NEUT % 58 % (31-73); PLATELET COUNT 122 x10^3/uL (140-400); RED BLOOD COUNT 2.83 x10^6/uL (3.50-5.40); RED CELL DISTRIBUTION WIDTH 13.4 % (11.5-14.5); WHITE BLOOD COUNT 3.3 x10^3/uL (4.0-11.0)
[2017-03-28 07:55] LABS: GFR 24.8; POTASSIUM 4.1 mmol/L (3.5-5.1)
[2017-03-28] MEDS: FERROUS SULFATE 325 MG TABLET. PO SCH (08:31)
[2017-03-28] MEDS: MORPHINE ER 30 MG TABLET.ER PO SCH (08:31)
[2017-03-28] MEDS: ASPIRIN ENTERIC COATED 81 MG TABLET.DR. PO SCH (08:31)
[2017-03-28] MEDS ORDERED: MORP30TA3 PO (09:58)
[2017-03-28] MEDS ORDERED: ASPI-612 PO (09:58)
[2017-03-30] MEDS ORDERED: CHOLECALCIFEROL (VITAMIN D3) 50,000 UNIT CAPSULE PO SCH (09:00)
== END 2017-03-28 12:06 | disposition home health service (06) | DRG 682 ==
LOC: ER 10:02 → 1 SOUTH 12:51 → ICU 03-26 10:59
PROVIDERS: ADMIT Family Medicine; ATTEND Family Medicine
DX: N17.9 Acute kidney failure, unspecified (principal); G93.41 Metabolic encephalopathy; I95.9 Hypotension, unspecified; E11.22 Type 2 diabetes mellitus with diabetic chronic kidney disease; E66.01 Morbid (severe) obesity due to excess calories; Z68.41 Body mass index [BMI] 40.0-44.9, adult; D64.9 Anemia, unspecified; E86.0 Dehydration; I25.10 Atherosclerotic heart disease of native coronary artery without angina pectoris; K59.00 Constipation, unspecified; Z96.651 Presence of right artificial knee joint; M19.90 Unspecified osteoarthritis, unspecified site; I12.9 Hypertensive chronic kidney disease with stage 1 through stage 4 chronic kidney disease, or unspecified chronic kidney disease; N18.2 Chronic kidney disease, stage 2 (mild); Z79.82 Long term (current) use of aspirin; Z85.850 Personal history of malignant neoplasm of thyroid; Z90.710 Acquired absence of both cervix and uterus; Z98.84 Bariatric surgery status; Z90.49 Acquired absence of other specified parts of digestive tract
CPT/HCPCS: 36415; 70450; 71045; 72125; 73130; 73502; 73562; 73590; 74176; 80048; 80053; 80307; 81001; 82550; 82947; 83605; 83690; 83735; 83880; 84443; 84484; 85025; 85379; 85610; 85730; 87040; 87641; 87804; 93005; 93306; 96360; G0480; J2310; Q9966; 99285-25; G0479; J7030

== ENCOUNTER → 2018-01-05 | Outpatient (CLI) | payer MEDICARE, OTHER ==
[~2018-01-05] MED LIST changes: +ALIS1TAB4 PO; +ASPI-612 PO; +ASPI81TA50 PO; +CLON0.5T11 PO; +DULO60CA6 PO; +ERGO500027 PO; +ESTR42.53 TOP; +FERR325T14 PO; +FURO-68 PO; +LEVO150T PO; +LORA-254 PO; -LORA1TAB PO; +MELO15TA23 PO; +MIRA50TA PO; -MIRT45TA3 PO; +MIRT45TA58 PO; +MORP30TA3 PO; +NEBI10TA3 PO; +OXYC20TA34 PO; +POTA20TA4 PO; +SOLI5TAB2 PO
--- NOTE | 2018-01-13 11:44 | RAD ---
DATE: 01/05/2018 EXAM: DIGITAL SCREEN BILAT W/CAD HISTORY: Routine screening COMPARISON: 01/12/2013 This study was interpreted with the benefit of Computerized Aided Detection (CAD). Breast Density: FATTY The breast parenchyma is primarily fatty replaced. Breast parenchyma level density A. FINDINGS: There are benign-appearing lymph node type densities laterally in both breasts. No spiculated mass or architectural distortion is evident. Benign type calcifications are present. No suspicious microcalcifications have developed. IMPRESSION: There is no mammographic evidence of malignancy in either breast. BI-RADS CATEGORY: 2 BENIGN FINDING(S) RECOMMENDED FOLLOW-UP: 12M 12 MONTH FOLLOW-UP PQRS compliance statement: Patient information was entered into a reminder system with a target due date for the next mammogram. Mammography is a sensitive method for finding small breast cancers, but it does not detect them all and is not a substitute for careful clinical examination. A negative mammogram does not negate a clinically suspicious finding and should not result in delay in biopsying a clinically suspicious abnormality. "Our facility is accredited by the [employer] Mammography Program."
== END | disposition home or self-care (01) ==
LOC: MAMMO 10:11
PROVIDERS: ATTEND Family Medicine
DX: Z12.31 Encounter for screening mammogram for malignant neoplasm of breast (principal)
CPT/HCPCS: 77067

== ENCOUNTER 2018-07-13 14:10 | Inpatient (IN) | payer MEDICARE, OTHER ==
[~2018-07-13] VITALS: Ht 180.3 cm; Wt 161.5 kg
[~2018-07-13 14:10] MED LIST changes: -GABA600T2 PO; +GABA600T7 PO; +HYDR-3165 PO; -HYDR-971 PO; -OXYC-327 PO; +OXYC1TAB19 PO; -OXYC20TA34 PO; +OXYC20TA35 PO
--- NOTE | 2018-07-13 14:52 | RAD ---
3 view study of the left knee Clinical indications: Postoperative exam. FINDINGS: Total left knee arthroplasty is evident which is well aligned. No acute fracture or lytic process is seen. IMPRESSION: Total left knee arthroplasty. No acute abnormality. Electronically signed by: hCeng Perez MD (07/13/2018 2:49 PM) [place] [id number]
--- NOTE | 2018-07-13 15:41 | PHYS DOC ---
Past History Past Medical History: Arthritis, Hypertension Past Surgical History: Cancer Surgery, Cholecystectomy, Gastric Bypass, Knee Replacement Alcohol Use: None Drug Use: None Adult General Chief Complaint Chief Complaint: KNEE INJURY HPI HPI 67-year-old female presents with left knee pain. The patient stepped into an uncovered vent hole at her house yesterday and twisted her left knee. The patient was able to get back up and move around with her walker which she uses full-time. She tried ice it and take [id number] medications last night. She had difficulty sleeping. It is hurting more today and she just cannot walk, so she came to the emergency room. Patient has a history of knee replacement in this knee. She denies loss of consciousness, head injury, or any other complaints. Review of Systems Review of Systems Constitutional: Denies fever or chills [] Eyes: Denies change in visual acuity, redness, or eye pain [] HENT: Denies nasal congestion or sore throat [] Respiratory: Denies cough or shortness of breath [] Cardiovascular: No additional information not addressed in HPI [] GI: Denies abdominal pain, nausea, vomiting, bloody stools or diarrhea [] : Denies dysuria or hematuria [] Musculoskeletal: Denies back pain or joint pain [] Integument: Denies rash or skin lesions [] Neurologic: Denies headache, focal weakness or sensory changes [] Endocrine: Denies polyuria or polydipsia [] All other systems were reviewed and found to be within normal limits, except as documented in this note. Allergies Allergies Allergies Coded Allergies Type Severity Reaction Last Updated Verified No Known Drug Allergies 03/25/17 No Physical Exam Physical Exam Constitutional: Well developed, morbidly obese, well nourished, no acute distress, non-toxic appearance. [] HENT: Normocephalic, atraumatic, bilateral external ears normal, oropharynx moist, no oral exudates, nose normal. [] Eyes: PERRLA, EOMI, conjunctiva normal, no discharge. [] Neck: Normal range of motion, no tenderness, supple, no stridor. [] Cardiovascular:Heart rate regular rhythm, no murmur [] Lungs & Thorax: Bilateral breath sounds clear to auscultation [] Abdomen: Bowel sounds normal, soft, no tenderness, no masses, no pulsatile masses. [] Skin: Warm, dry, no erythema, no rash. [] Back: No tenderness, no CVA tenderness. [] Extremities: Tenderness with range of motion exercises of the left knee limited exam[] Neurologic: Alert and oriented X 3, normal motor function, normal sensory function, no focal deficits noted. [] Psychologic: Affect normal, judgement normal, mood normal. [] Current Patient Data Vital Signs Vital Signs Date Time Temp Pulse Resp B/P (MAP) Pulse Ox O2 Delivery O2 Flow Rate FiO2 07/13/18 14:20 98.3 61 20 97 Room Air EKG EKG [] Radiology/Procedures Radiology/Procedures [] Impressions: 3 view study of the left knee Clinical indications: Postoperative exam. FINDINGS: Total left knee arthroplasty is evident which is well aligned. No acute fracture or lytic process is seen. IMPRESSION: Total left knee arthroplasty. No acute abnormality. Electronically signed by: Francesco Perez MD (07/13/2018 2:49 PM) [facility] DICTATED AND SIGNED BY: FRANCESCO PEREZ MD DATE: 07/13/18 1449 CC: JOSELINE ELDER DO; DAYTON CUEVA MD ~ Course & Med Decision Making Course & Med Decision Making Pertinent Labs and Imaging studies reviewed. (See chart for details) The patient's x-ray is negative for fracture or disruption of her knee hardware. She is unable to ambulate without significant assistance. She has not safe to go home at this time. I discussed the patient with Dr. Cueva and he has agreed to admission. We'll give her [place] 5/325 for pain in the ED. Dragon Disclaimer Dragon Disclaimer This electronic medical record was generated, in whole or in part, using a voice recognition dictation system. Departure Departure: Impression: Primary Impression: Fall Additional Impression: Left knee pain Disposition: ADMITTED INPATIENT Admitting Physician: Dayton Cueva Condition: STABLE Referrals: DAYTON CUEVA MD (PCP) Problem Qualifiers Primary Impression: Fall Encounter type: initial encounter Qualified Codes: W19.XXXA - Unspecified fall, initial encounter Additional Impression: Left knee pain Chronicity: acute Qualified Codes: M25.562 - Pain in left knee JOSELINE ELDER DO Jul 13, 2018 15:41
[2018-07-13] MEDS ORDERED: HYDROcodone/APAP 5/325MG 1 TAB TABLET PO ONE (16:00)
[2018-07-13 18:08] VITALS: BP 144/82
[2018-07-13] MEDS ORDERED: clonazePAM 0.5 MG TABLET PO PRN (18:45)
[2018-07-13 21:13] LABS: ALBUMIN 3.2 g/dL (3.4-5.0); CALCIUM 8.6 mg/dL (8.5-10.1); CREATININE 1.2 mg/dL (0.6-1.0); GFR 44.5; POTASSIUM 4.7 mmol/L (3.5-5.1); TOTAL BILIRUBIN 0.3 mg/dL (0.2-1.0); TOTAL PROTEIN 6.4 g/dL (6.4-8.2)
[2018-07-13 21:34] VITALS: BP 140/75
[2018-07-13] MEDS: MORPHINE ER 30 MG TABLET.ER PO SCH (22:12)
[2018-07-13] MEDS: MIRTAZAPINE 15 MG TABLET PO SCH (22:13)
[2018-07-13] MEDS: GABAPENTIN 300 MG CAPSULE. PO SCH (22:13)
[2018-07-13] MEDS: ZOLPIDEM 5 MG TABLET. PO PRN (22:15)
[2018-07-13 23:36] LABS: BACTERIA,URINE 0 /HPF (0-FEW); BILIRUBIN,URINE NEG (NEG); CLARITY,URINE CLEAR; COLOR,URINE YELLOW; GLUCOSE,URINE NEG (NEG); NITRITE,URINE NEG (NEG); RBC,URINE 0 /HPF (0-2); SQUAMOUS EPITHELIAL CELL,UR OCC /LPF; UROBILINOGEN,URINE 0.2 mg/dL (0.2 mg/dL); WBC,URINE OCC /HPF (0-4)
[2018-07-14 05:39] VITALS: BP 133/73
[2018-07-14] MEDS: LEVOTHYROXINE 150 MCG TABLET PO SCH (05:52)
--- NOTE | 2018-07-14 06:33 | EKG ---
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
[2018-07-14 06:41] LABS: BASO % 1 % (0-3); EOS # 0.1 x10^3/uL (0.0-0.7); EOS % 3 % (0-3); HEMATOCRIT 29.7 % (36.0-47.0); HEMOGLOBIN 9.7 g/dL (12.0-15.5); LYMPH # 0.8 x10^3/uL (1.0-4.8); LYMPH % 22 % (24-48); MEAN CORPUSCULAR HEMOGLOBIN 31 pg (25-35); MEAN CORPUSCULAR HGB CONC 33 g/dL (31-37); MEAN CORPUSCULAR VOLUME 95 fL (79-100); MONO # 0.4 x10^3/uL (0.0-1.1); MONO % 11 % (0-9); NEUT # 2.2 x10^3uL (1.8-7.7); NEUT % 64 % (31-73); PLATELET COUNT 169 x10^3/uL (140-400); RED BLOOD COUNT 3.11 x10^6/uL (3.50-5.40); RED CELL DISTRIBUTION WIDTH 13.4 % (11.5-14.5); WHITE BLOOD COUNT 3.4 x10^3/uL (4.0-11.0)
[2018-07-14 06:48] LABS: CALCIUM 8.6 mg/dL (8.5-10.1); CREATININE 1.1 mg/dL (0.6-1.0); GFR 49.2; POTASSIUM 4.3 mmol/L (3.5-5.1)
[2018-07-14] MEDS ORDERED: TRAM50TA PO (07:59)
[2018-07-14] MEDS ORDERED: DULO20CA50 PO (07:59)
[2018-07-14] MEDS ORDERED: FURO-69 PO (07:59)
[2018-07-14] MEDS ORDERED: LEVO750T5 PO (07:59)
[2018-07-14] MEDS ORDERED: DICL50TA2 PO (07:59)
[2018-07-14] MEDS ORDERED: MULT1TAB52 PO (08:10)
[2018-07-14] MEDS ORDERED: CALC-157 PO (08:10)
[2018-07-14] MEDS: MORPHINE ER 30 MG TABLET.ER PO SCH (08:47)
[2018-07-14] MEDS: GABAPENTIN 300 MG CAPSULE. PO SCH ×4 (08:50→23:09)
[2018-07-14] MEDS: ASPIRIN ENTERIC COATED 81 MG TABLET.DR. PO SCH (08:50)
[2018-07-14] MEDS: APIXABAN 5 MG TABLET. PO SCH ×3 (08:50→23:08)
[2018-07-14] MEDS: FERROUS SULFATE 325 MG TABLET. PO SCH ×2 (08:50→16:52)
[2018-07-14] MEDS: HYDROcodone/APAP 5/325MG 1 TAB TABLET PO PRN ×2 (08:51→17:40)
[2018-07-14] MEDS ORDERED: ISOSORBIDE MONONITRATE ER 30 MG TAB.ER.24H PO SCH (09:00)
[2018-07-14] MEDS ORDERED: METOPROLOL TART IMMED RELEASE 50 MG TABLET PO SCH (09:00)
[2018-07-14] MEDS ORDERED: MIRABEGRON 25 MG TAB.ER.24H PO SCH (09:00)
[2018-07-14] MEDS: FUROSEMIDE 20 MG TABLET PO SCH ×2 (10:00→13:34)
[2018-07-14] MEDS: MULTIVITAMIN with MINERAL TABLET. PO SCH (10:00)
[2018-07-14] MEDS: traMADol 50 MG TABLET PO SCH ×3 (10:00→23:10)
[2018-07-14] MEDS: CALCIUM CARB/VIT D3 500/200 TABLET PO SCH ×3 (10:00→23:09)
--- NOTE | 2018-07-14 10:27 | HP ---
ADMIT DATE: 07/13/2018 HISTORY OF PRESENT ILLNESS: A 67-year-old female, morbidly obese. Apparently in her house, fell onto a register that had been left open by her cat. She twisted her left knee to the point where it popped. She had difficulty sleeping and hurting her leg was so painful she was unable to move and had to be placed in a wheelchair. She denies any loss of consciousness, chest pain, or other problems. However, the patient did note that she was unable to bear weight on her left leg. She has no other assistance at home that can take care of her and was admitted to the hospital for further evaluation of that knee problem. PAST MEDICAL HISTORY: Thyroid cancer in 1982; neurological surgery; coronary artery disease; hiatal hernia; cholecystectomy; appendectomy; gastric bypass; obesity, morbid; incontinence; urinary urgency; arthritis; osteoporosis; orthopedic surgeries, 8 on the right knee and 1 on the left knee. She has had joint replacement on the right knee and right hip, hypothyroidism, thyroidectomy. VACCINATIONS: Influenza and pneumococcal vaccinations are up-to-date. FAMILY HISTORY: Mother had hypertension. ALLERGIES: No known allergies. MEDICATIONS: Updated medication list includes levothyroxine, ferrous sulfate, Bystolic 10 mg daily, aspirin, tramadol 50, clonazepam 0.5, gabapentin 600, duloxetine 20 mg b.i.d., Remeron 45, Ambien 10 mg at bedtime, calcium carbonate, furosemide or Lasix 20, Synthroid 150, vitamin D, multivitamins. SOCIAL HISTORY: No smoking, alcohol, or drug use. 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 REVIEW OF SYSTEMS: She denies any head injuries, any headaches, visual changes, blurred vision, double vision. Denies chest pain, shortness of breath. Denies abdominal pain. The patient's extremities are markedly obese of course and has marked swelling and tenderness to the inside of the left knee. Decreased range of motion, negative Radha, negative drawer sign, however marked tenderness to the medial aspect of that knee. She is unable to bear weight. Neurologically, alert and oriented x 3. LABORATORY DATA: The patient's hemoglobin and hematocrit are 9.7 and 29. Chemistries show BUN and creatinine 26 and 1.1, blood sugar 102 to 90, and so forth. Urine was unremarkable. Coag was elevated, so she will get a V/Q scan. IMPRESSION: Probable severe sprain to the medial collateral ligament of the left knee, unable to stand; generalized weakness; extreme morbid obesity, weight 356; anemia of chronic disease; positive D-dimer. The patient received PT, OT, pain management, and make further evaluation on her as indicated. KELI CUEVA MD DR: BARRINGTON/hank JOB#: [id number] / [id number]
[2018-07-14 10:41] VITALS: BP 88/52
[2018-07-14 10:48] VITALS: BP 109/53
[2018-07-14] MEDS ORDERED: levoFLOXacin 750 MG TABLET PO SCH (12:00)
[2018-07-14] MEDS: DULoxetine HCL 20 MG CAPSULE.DR PO SCH (12:16)
[2018-07-14] MEDS: DICLOFENAC SODIUM 25 MG TABLET.DR PO SCH ×4 (12:17→23:10)
[2018-07-14] MEDS ORDERED: HEPARIN for SUB-Q USE 5,000 UNIT/ML VIAL. SQ SCH (14:00)
[2018-07-14 15:10] VITALS: BP 150/80
--- NOTE | 2018-07-14 16:19 | RAD ---
Portable chest without comparison for shortness of air, nuclear scan. FINDINGS: Lungs are clear. Heart size is enlarged. Atherosclerosis is present. No significant osseous abnormality is identified. IMPRESSION: 1. Cardiomegaly with no acute cardiopulmonary abnormality. Electronically signed by: Jayden Tomlin MD (07/14/2018 4:16 PM) [id number]
--- NOTE | 2018-07-14 17:37 | RAD ---
Examination: VENOUS LOWER EXT BILATERAL History: ELEVATED D-DIMER, LEG PAIN AND SWELLING Comparison/Correlation: RESULT: EXAMINATION: VENOUS LOWER EXT BILATERAL HISTORY: Leg pain and swelling. Elevated d-dimer. COMPARISON/CORRELATION: None FINDINGS: Bilateral lower extremity duplex venous ultrasound exam was performed. Grayscale, color Doppler, and spectral Doppler imaging was performed. Compression and augmentation was performed. The right common femoral vein, superficial femoral vein, popliteal vein, and greater saphenous vein are normal with no evidence of deep venous thrombus. Visualized calf veins are unremarkable. Normal compressibility and augmentation is evident. The left common femoral vein, superficial femoral vein, popliteal vein, and greater saphenous vein are normal with no evidence of deep venous thrombus. Visualized calf veins are unremarkable. Normal compressibility and augmentation is evident. IMPRESSION: Normal bilateral lower extremity duplex ultrasound exam. No evidence of deep venous thrombus involving the lower extremities. Electronically signed by: William Victor MD (07/14/2018 5:34 PM) [facility]
[2018-07-14 19:06] VITALS: BP 102/56
[2018-07-14] MEDS: MIRTAZAPINE 15 MG TABLET PO SCH ×2 (21:38→23:09)
[2018-07-14 22:52] VITALS: BP 111/65
[2018-07-14] MEDS: ZOLPIDEM 5 MG TABLET. PO PRN (23:11)
[2018-07-15] MEDS: HYDROcodone/APAP 5/325MG 1 TAB TABLET PO PRN ×3 (01:52→15:48)
[2018-07-15] MEDS: LEVOTHYROXINE 150 MCG TABLET PO SCH (05:16)
[2018-07-15 05:20] VITALS: BP 104/68
[2018-07-15] MEDS: FERROUS SULFATE 325 MG TABLET. PO SCH ×2 (08:08→15:49)
[2018-07-15] MEDS: ASPIRIN ENTERIC COATED 81 MG TABLET.DR. PO SCH (08:08)
[2018-07-15] MEDS: CALCIUM CARB/VIT D3 500/200 TABLET PO SCH ×2 (08:08→23:06)
[2018-07-15] MEDS: MULTIVITAMIN with MINERAL TABLET. PO SCH (08:08)
[2018-07-15] MEDS: APIXABAN 5 MG TABLET. PO SCH ×2 (08:08→23:06)
[2018-07-15] MEDS: GABAPENTIN 300 MG CAPSULE. PO SCH ×3 (08:09→23:06)
[2018-07-15] MEDS: DICLOFENAC SODIUM 25 MG TABLET.DR PO SCH ×3 (08:10→23:05)
[2018-07-15] MEDS: FUROSEMIDE 20 MG TABLET PO SCH ×2 (08:11→13:32)
[2018-07-15] MEDS: traMADol 50 MG TABLET PO SCH ×2 (08:11→23:05)
[2018-07-15 11:25] VITALS: BP 127/72
[2018-07-15] MEDS: DULoxetine HCL 20 MG CAPSULE.DR PO SCH (12:50)
--- NOTE | 2018-07-15 14:38 | PN ---
DATE: SUBJECTIVE: The patient is a 67-year-old female that had significant problems twisting her left knee and as a result of a popping sensation, the patient unable to stand or walk. She has generalized weakness. She has extreme morbid obesity and as a result of this, the patient was admitted to the hospital for further evaluation and treatment and probable placement into a nursing facility. She has negative DVTs, although her D-dimer was elevated. She is on a blood thinner to begin with. The patient made good progress during the rest of her hospitalization. She continues with, PT, OT and making fairly good progress today, otherwise blood pressure 104/68, respiratory rate 18, pulse 65, afebrile. The patient's lungs were diminished, but clear. The patient to continue on present drug regimen. CARDIOVASCULAR: Regular sinus rhythm. ABDOMEN: Soft, markedly protuberant. EXTREMITIES: Markedly swollen, probably chronic lymphedema with marked varicosities and some ecchymoses, however, the left ____ swollen on the medial aspect of the knee, but she has better range of motion today on it as well. HEENT: The patient's head is resting fairly comfortably and continue with physical and occupational therapy. KELI CUEVA MD DR: BARRINGTON/hank JOB#: [id number] / [id number]
[2018-07-15 14:56] VITALS: BP 123/68
[2018-07-15 19:23] VITALS: BP 112/69
[2018-07-15 22:34] VITALS: BP 123/70
[2018-07-15] MEDS: ZOLPIDEM 5 MG TABLET. PO PRN (23:04)
[2018-07-15] MEDS: MIRTAZAPINE 15 MG TABLET PO SCH (23:05)
[2018-07-16] MEDS: HYDROcodone/APAP 5/325MG 1 TAB TABLET PO PRN ×2 (03:46→10:05)
[2018-07-16 05:01] VITALS: BP 142/76
[2018-07-16] MEDS: LEVOTHYROXINE 150 MCG TABLET PO SCH (06:11)
[2018-07-16] MEDS: traMADol 50 MG TABLET PO SCH (09:06)
[2018-07-16] MEDS: FERROUS SULFATE 325 MG TABLET. PO SCH (09:07)
[2018-07-16] MEDS: CALCIUM CARB/VIT D3 500/200 TABLET PO SCH (09:07)
[2018-07-16] MEDS: FUROSEMIDE 20 MG TABLET PO SCH (09:07)
[2018-07-16] MEDS: GABAPENTIN 300 MG CAPSULE. PO SCH (09:07)
[2018-07-16] MEDS: ASPIRIN ENTERIC COATED 81 MG TABLET.DR. PO SCH (09:07)
[2018-07-16] MEDS: DICLOFENAC SODIUM 25 MG TABLET.DR PO SCH (09:08)
[2018-07-16] MEDS: MULTIVITAMIN with MINERAL TABLET. PO SCH (09:08)
[2018-07-16] MEDS: APIXABAN 5 MG TABLET. PO SCH (09:14)
--- NOTE | 2018-07-16 19:30 | DS ---
DATE OF DISCHARGE: 07/16/2018 HOSPITAL COURSE: A 67-year-old female, came in with twisting her left knee. She felt a popping sensation, also had generalized weakness. The patient in turn was unable to bear weight on her leg or walk. As a result of this, the patient was admitted to the hospital for further evaluation and treatment, received physical and occupational therapy. The patient had markedly swollen legs, although venous Dopplers were negative for any signs of blood clot. Her hemoglobin was 9.7 and ____, white count 3.4. The patient's chemistries were basically normal except for slightly elevated creatinine of 1.1. Albumin is slightly low at 3.2. She had an elevated D-dimer but she was too big to be in the scanners here and consequently did not have that scan. The patient was discharged to a nursing facility because she was unable to take care of herself at home. IMPRESSION: Generalized weakness, anemia of chronic disease, iron deficiency anemia, sprain of the left knee and accident at home. DISCHARGE PLAN: The patient will be on a heart healthy diet, PT, OT and therapy there at the [facility]. KELI CUEVA MD DR: BARRINGTON/hank JOB#: [id number] / [id number]
[2018-07-16] MEDS ORDERED: IPRATRPIUM/ALBUTEROL 0.5/2.5MG 3 ML NEBU. NEB SCH (21:00)
[2018-07-20] MEDS ORDERED: CHOLECALCIFEROL (VITAMIN D3) 50,000 UNIT CAPSULE PO SCH (09:00)
== END 2018-07-16 10:15 | DRG 563 ==
LOC: ER 14:10 → 1 SOUTH 16:20
PROVIDERS: ADMIT Family Medicine; ATTEND Family Medicine
DX: S83.92XA Sprain of unspecified site of left knee, initial encounter (principal); Z68.42 Body mass index [BMI] 45.0-49.9, adult; I10 Essential (primary) hypertension; Z96.652 Presence of left artificial knee joint; E66.01 Morbid (severe) obesity due to excess calories; E89.0 Postprocedural hypothyroidism; D63.8 Anemia in other chronic diseases classified elsewhere; D50.9 Iron deficiency anemia, unspecified; W01.0XXA Fall on same level from slipping, tripping and stumbling without subsequent striking against object, initial encounter; I25.10 Atherosclerotic heart disease of native coronary artery without angina pectoris; M81.0 Age-related osteoporosis without current pathological fracture; M19.90 Unspecified osteoarthritis, unspecified site; Z98.84 Bariatric surgery status; Z90.49 Acquired absence of other specified parts of digestive tract; Z82.49 Family history of ischemic heart disease and other diseases of the circulatory system; Y93.89 Activity, other specified; Y92.89 Other specified places as the place of occurrence of the external cause; Y99.8 Other external cause status; Z85.850 Personal history of malignant neoplasm of thyroid
CPT/HCPCS: 36415; 71045; 73562; 80048; 80053; 81001; 83540; 83550; 85025; 85379; 93005; 93970; 97110; 97116; 97530; 97535

== ENCOUNTER → 2018-10-22 | Outpatient (CLI) | payer MEDICARE, OTHER ==
[~2018-10-22] MED LIST changes: +CALC-157 PO; +DICL50TA2 PO; +DULO20CA50 PO; +FURO-69 PO; +MULT1TAB52 PO; +TRAM50TA PO
--- NOTE | 2018-10-22 10:50 | EKG ---
[address] [address] Test Date: 2018-10-22 Test Time: 10:50:21 Pat Name: KARL MEADOWS Department: Room: Gender: F Application Release Manager: : [id number] Requested By: KELLI NORMAN Order Number: [id number] Reading MD: Measurements Intervals [place] Rate: 53 P: 30 MT: 178 QRS: -13 QRSD: 86 T: 19 QT: 398 QTc: 375 Interpretive Statements SINUS RHYTHM LEFTWARD AXIS OTHERWISE NORMAL ECG RI6.01 Compared to ECG 07/14/2018 05:10:52 No significant changes
[2018-10-22 11:25] LABS: BASO % 0 % (0-3); EOS # 0.1 x10^3/uL (0.0-0.7); EOS % 2 % (0-3); HEMATOCRIT 34.6 % (36.0-47.0); HEMOGLOBIN 11.3 g/dL (12.0-15.5); LYMPH # 0.8 x10^3/uL (1.0-4.8); LYMPH % 19 % (24-48); MEAN CORPUSCULAR HEMOGLOBIN 31 pg (25-35); MEAN CORPUSCULAR HGB CONC 33 g/dL (31-37); MEAN CORPUSCULAR VOLUME 94 fL (79-100); MONO # 0.3 x10^3/uL (0.0-1.1); MONO % 8 % (0-9); NEUT % 71 % (31-73); PLATELET COUNT 190 x10^3/uL (140-400); RED BLOOD COUNT 3.69 x10^6/uL (3.50-5.40); RED CELL DISTRIBUTION WIDTH 14.1 % (11.5-14.5); WHITE BLOOD COUNT 4.2 x10^3/uL (4.0-11.0)
== END | disposition home or self-care (01) ==
LOC: LAB 10:28
PROVIDERS: ATTEND Anesthesiology Pain Medicine
DX: Z01.818 Encounter for other preprocedural examination (principal); R94.31 Abnormal electrocardiogram [ECG] [EKG]
CPT/HCPCS: 36415; 85025; 85610; 87641; 93005

== ENCOUNTER → 2018-12-30 | Outpatient (CLI) | payer MEDICARE, OTHER ==
[~2018-12-30] MED LIST changes: +MORP-16 PO; -MORP30TA3 PO
[2018-12-30 11:20] LABS: ALBUMIN 3.2 g/dL (3.4-5.0); ALBUMIN/GLOBULIN RATIO 0.8 (1.0-1.7); CALCIUM 8.8 mg/dL (8.5-10.1); GFR 54.8; POTASSIUM 5.3 mmol/L (3.5-5.1); TOTAL BILIRUBIN 0.3 mg/dL (0.2-1.0); TOTAL PROTEIN 7.3 g/dL (6.4-8.2)
== END | disposition home or self-care (01) ==
LOC: LAB 09:58
PROVIDERS: ATTEND Nurse Practitioner
DX: E78.5 Hyperlipidemia, unspecified (principal)
CPT/HCPCS: 36415; 80053; 80061

== ENCOUNTER → 2019-01-06 | Outpatient (CLI) | payer MEDICARE, OTHER ==
--- NOTE | 2019-01-06 18:02 | RAD ---
DATE: 01/06/2019 EXAM: DIGITAL SCREEN BILAT W/CAD HISTORY: Routine screening COMPARISON: 07/17/2010, 01/12/2013 01/05/2018 mammographic exams This study was interpreted with the benefit of Computerized Aided Detection (CAD). Breast Density: SCATTERED The breast parenchyma shows scattered fibroglandular densities. Breast parenchyma level B. FINDINGS: Benign-appearing focal asymmetries. No new mass or distortion. Benign calcifications are minimal. IMPRESSION: Stable BI-RADS CATEGORY: 1 NEGATIVE RECOMMENDED FOLLOW-UP: 12M 12 MONTH FOLLOW-UP PQRS compliance statement: Patient information was entered into a reminder system with a target due date for the next mammogram. Mammography is a sensitive method for finding small breast cancers, but it does not detect them all and is not a substitute for careful clinical examination. A negative mammogram does not negate a clinically suspicious finding and should not result in delay in biopsying a clinically suspicious abnormality. "Our facility is accredited by the [employer] Mammography [employer]."
== END | disposition home or self-care (01) ==
LOC: MAMMO 10:07
PROVIDERS: ATTEND Family Medicine
DX: Z12.31 Encounter for screening mammogram for malignant neoplasm of breast (principal); N64.89 Other specified disorders of breast
CPT/HCPCS: 77067

== ENCOUNTER → 2019-02-05 | Outpatient (CLI) | payer MEDICARE, OTHER ==
[~2019-02-05] MED LIST changes: -CLON0.5T11 PO; +CLON0.5T4 PO
[2019-02-05 10:38] VITALS: BP 103/49
[2019-02-05 12:15] LABS: CALCIUM 8.6 mg/dL (8.5-10.1); CREATININE 1.1 mg/dL (0.6-1.0); GFR 49.1; POTASSIUM 4.9 mmol/L (3.5-5.1)
== END | disposition home or self-care (01) ==
LOC: LAB 11:04
PROVIDERS: ATTEND Nurse Practitioner
DX: R60.0 Localized edema (principal)
CPT/HCPCS: 36415; 80048

== ENCOUNTER → 2019-02-05 | Outpatient (CLI) | payer MEDICARE, OTHER ==
[2019-02-05 10:38] VITALS: BP 103/49
== END | disposition home or self-care (01) ==
LOC: SURG 10:12
PROVIDERS: ATTEND Anesthesiology Pain Medicine
DX: M54.9 Dorsalgia, unspecified (principal); M25.561 Pain in right knee; M79.2 Neuralgia and neuritis, unspecified; Z79.2 Long term (current) use of antibiotics; Z96.651 Presence of right artificial knee joint; Z79.891 Long term (current) use of opiate analgesic; Z79.899 Other long term (current) drug therapy
CPT/HCPCS: 99214

== ENCOUNTER → 2020-01-19 | Outpatient (CLI) | payer MEDICARE, OTHER ==
[2019-02-05 10:38] VITALS: BP 103/49
[~2020-01-19] MED LIST changes: -ASPI-612 PO; +ASPI-889 PO; +MULT-445 PO; -MULT1TAB52 PO
--- NOTE | 2020-01-19 14:21 | RAD ---
BILATERAL SCREENING MAMMOGRAM History: Routine screening. Comparison: 01/06/2019, 01/03/2018, 01/12/2013. Technique: Routine bilateral digital mammogram views were obtained. Findings: Breast Tissue Density B : There are scattered areas of fibroglandular density. There are no dominant masses, suspicious microcalcifications, or architectural distortion. The IMPRESSION: No mammographic evidence of malignancy. Recommend routine screening. BI-RADS category 1: Negative. The images were reviewed with computer aided detection. Patient information is entered into the reminder system with a target due date for the next screening mammogram. Mammography is the most sensitive method for finding small breast cancers, but it does not detect them all and is not a substitute for careful clinical examination. A negative mammogram does not negate a clinically suspicious finding and should not result in delay in biopsying a clinically suspicious abnormality. "Our facility is accredited by the [employer] Mammography Program." Electronically signed by: William Victor MD (01/19/2020 2:18 PM) [id number]
== END ==
LOC: MAMMO 10:22
PROVIDERS: ATTEND Family Medicine
DX: Z12.31 Encounter for screening mammogram for malignant neoplasm of breast (principal)
CPT/HCPCS: 77067

== ENCOUNTER → 2021-02-09 | Outpatient (CLI) | payer MEDICARE, OTHER ==
[2019-02-05 10:38] VITALS: BP 103/49
[~2021-02-09] MED LIST changes: -DULO60CA6 PO; +DULO60CA7 PO; -ISOS60TA2 PO; +ISOS60TA55 PO; +MIRA25TA PO; -MIRA50TA PO; +POTA-121 PO; -POTA20TA4 PO
--- NOTE | 2021-02-09 13:37 | RAD ---
BILATERAL DIGITAL SCREENING 2-D MAMMOGRAM 02/09/2021. INDICATION: Routine screening. COMPARISON: Prior exams including 01/19/2020. Interpretation was made using CAD. FINDINGS: Breast Density: There are scattered areas of fibroglandular density. RIGHT BREAST: No suspicious masses, calcifications or areas of architectural distortion are seen. LEFT BREAST: No suspicious masses, calcifications or areas of architectural distortion are seen. IMPRESSION: 1. No imaging evidence of malignancy. ASSESSMENT: BI-RADS 1. Negative. RECOMMENDATION: Routine annual screening mammogram. The facility will notify the patient of the results via mail. Patient information will be entered int o the mammography reminder system with a target recall date for the next mammogram. A reminder letter will be generated by the facility. Electronically signed by: Kannan Hamilton Jr., MD (02/09/2021 1:34 PM) [id number]
== END ==
LOC: MAMMO 11:20
PROVIDERS: ATTEND Family Medicine
DX: Z12.31 Encounter for screening mammogram for malignant neoplasm of breast (principal)
CPT/HCPCS: 77067